=== PATIENT | male | born 1970 | race Hispanic/Latino ===

== ENCOUNTER 2019-04-19 15:01 | Emergency (ER) | payer OTHER ==
[2019-04-19 15:42] LABS: Absolute Lymphocytes (CBC) 1.8 K/uL (0.7-4.9); Hematocrit 47.3 % (39.6-49.0); Lymphocytes % 32.6 % (15.3-44.8); MPV 7.3 fL (7.6-11.3); RBC Red Blood Cell Count 4.87 M/uL (4.33-5.43)
[2019-04-19 15:47] LABS: Protime INR 0.98
[2019-04-19 16:00] LABS: ALT/SGPT 26 U/L (12-78); AST/SGOT 25 U/L (15-37); Albumin 3.8 g/dL (3.4-5.0); Alkaline Phosphatase 47 U/L (45-117); BUN Blood Urea Nitrogen 12 mg/dL (7-18); Bicarbonate 28 mmol/L (21-32); Bilirubin Direct 0.1 mg/dL (0-0.2); Bilirubin Total 0.6 mg/dL (0.2-1.0); Glucose Level 86 mg/dL (74-106); Lipase 164 U/L (73-393); Magnesium 2.1 mg/dL (1.8-2.4); Potassium 3.7 mmol/L (3.5-5.1); Protein, Total 6.9 g/dL (6.4-8.2); Sodium Level 143 mmol/L (136-145); Troponin I < 0.02 ng/mL (0.0-0.045)
[2019-04-19 16:10] LABS: Urine Blood NEGATIVE (NEG); Urine Glucose NEGATIVE (NEG); Urine Protein NEGATIVE (NEG); Urine pH 7.5 (5.0-7.0)
--- NOTE | 2019-04-19 17:11 | RAD REPORT ---
EXAM DESCRIPTION: CT - Abdomen Pelvis W Contrast - 04/19/2019 5:00 pm CLINICAL HISTORY: Abdominal pain hematochezia COMPARISON: none. TECHNIQUE: Computed axial tomography of the abdomen pelvis was obtained. 100 cc Isovue-300 was admin istered intravenously. Oral contrast was not requested which limits evaluation of bowel. All CT scans are performed using dose optimization technique as appropriate and may include automated exposure control or mA/KV adjustment according to patient size. FINDINGS: The liver, spleen, pancreas, adrenal and kidneys appear unremarkable. There is no evidence of diverticulitis. The wall of the rectosigmoid colon appears mildly thickened. No appendicitis. Trace amount of free fluid Minimal anterior subluxation L5 on S1. L5 spondylolysis IMPRESSION: Mild thickening of the wall of rectosigmoid colon may indicate a mild colitis
[2019-04-19] MEDS ORDERED: METRONIDAZOLE 500mg IVPB 500 MG/100 ML BAG IV ONE (17:42)
[2019-04-19] MEDS ORDERED: CIPROFLOXACIN 400mg IV 400 MG/200 ML BAG IV ONE (17:58)
[2019-04-19] MEDS ORDERED: NA CHLORIDE 0.9% 1,000 ML ONE (17:59)
[2019-04-19] MEDS ORDERED: ONDANSETRON 4 MG/2 ML VIAL ONE (18:21)
[2019-04-19] MEDS ORDERED: MORPHINE 2 MG/ML SYR ONE ×3 (18:21→23:30)
--- NOTE | 2019-04-19 18:29 | EDPHYS ---
Physician Documentation [facility] Name: Austen Hernandez Age: 49 yrs Sex: Male : 1970 Arrival Date: 04/19/2019 Time: 15:05 Bed 19 Private MD: ED Physician Ned Chin HPI: 04/19 15:09 This 49 yrs old Male presents to ER via Unassigned with complaints of Abdominal Pain, cp Bloody Stools. 15:10 The patient presents with abdominal pain in the upper abdomen. cp 15:10 Onset: The symptoms/episode began/occurred today, after lunch. The symptoms do not cp radiate. Associated signs and symptoms: Pertinent positives: blood in stools, diarrhea, Pertinent negatives: chest pain, constipation, fever, vomiting. The symptoms are described as crampy. Historical: - Allergies: 19:18 PENICILLINS; tw2 19:18 Cogentin; tw2 - Home Meds: 19:18 None [Active]; tw2 - PMHx: 19:18 None; tw2 - PSHx: 19:18 None; tw2 - Immunization history:: Adult Immunizations. - Coronavirus screen:: The patient has NOT traveled to [place] in the past 14 days. - Social history:: Smoking status: . - Ebola Screening: : Patient denies travel to an Ebola-affected area in the 21 days before illness onset. ROS: 15:15 Constitutional: Negative for body aches, chills, fever, poor PO intake. cp 15:15 Eyes: Negative for injury, pain, redness, and discharge. cp 15:15 ENT: Negative for drainage from ear(s), ear pain, sore throat, difficulty swallowing, difficulty handling secretions. 15:15 Cardiovascular: Negative for chest pain, palpitations. 15:15 Respiratory: Negative for cough, shortness of breath, wheezing. 15:15 Abdomen/GI: Positive for diarrhea, abdominal cramps, rectal bleeding, Negative for vomiting, constipation. 15:15 Back: Negative for pain at rest, pain with movement, radiated pain. 15:15 : Negative for urinary symptoms. 15:15 Neuro: Negative for altered mental status, dizziness, syncope, weakness. 15:15 All other systems are negative. Exam: 15:20 Constitutional: The patient appears in no acute distress, alert, awake, cp non-diaphoretic, non-toxic, well developed, well nourished. 15:20 Head/Face: Normocephalic, atraumatic. cp 15:20 Eyes: Periorbital structures: appear normal, Conjunctiva: normal, no exudate, no injection, Sclera: no appreciated abnormality, Lids and lashes: appear normal, bilaterally. 15:20 ENT: External ear(s): are unremarkable, Nose: is normal, Mouth: is normal, Posterior pharynx: is normal, airway is patent. 15:20 Chest/axilla: Inspection: normal, Palpation: is normal, no crepitus, no tenderness. 15:20 Cardiovascular: Rate: normal, Rhythm: regular, Heart sounds: murmur, not appreciated. 15:20 Respiratory: the patient does not display signs of respiratory distress, Respirations: normal, no use of accessory muscles, no splinting, no tachypnea, labored breathing, is not present, Breath sounds: are clear throughout, no decreased breath sounds. 15:20 Abdomen/GI: Inspection: abdomen appears normal, Bowel sounds: active, all quadrants, Palpation: soft, in all quadrants, mild abdominal tenderness, in the right upper quadrant and left upper quadrant, rebound tenderness, is not appreciated, voluntary guarding, is not appreciated, involuntary guarding, is not appreciated. 15:20 Back: pain, is absent, ROM is normal. 15:20 Skin: no rash present. 15:25 : Rectal exam: Guaiac testing: results were positive for occult blood, hemorrhoid(s), cp are not appreciated. 16:20 ECG was reviewed by the Attending Physician. cp Vital Signs: 15:05 BP 135 / 85; Pulse 73; Resp 17; Temp 97.8(TE); Pulse Ox 100% on R/A; Weight 70.76 kg tw2 (R); Height 5 ft. 6 in. (167.64 cm); Pain 5/10; 16:00 BP 113 / 93; Pulse 66; Resp 17; Pulse Ox 97% on R/A; tw2 17:20 BP 134 / 97; Pulse 61; Resp 17; Pulse Ox 97% on R/A; tw2 18:40 BP 142 / 75; Pulse 75; Resp 17; Pulse Ox 100% on R/A; tw2 20:18 BP 127 / 87; Pulse 70; Resp 17 S; Pulse Ox 100% on R/A; Pain 6/10; jd3 21:33 BP 123 / 86; Pulse 68; Resp 17 S; Pulse Ox 95% on R/A; jd3 23:07 BP 128 / 83; Pulse 58; Resp 17 S; Pulse Ox 96% on R/A; jd3 15:05 Body Mass Index 25.18 (70.76 kg, 167.64 cm) tw2 MDM: 15:09 Patient medically screened. cp 17:30 Data reviewed: vital signs, nurses notes, lab test result(s), EKG, radiologic studies, cp CT scan, I have discussed the patient's presentation/case with the attending Emergency Department Physician; and as a result, I will administer antibiotics Cipro and Metronidazole. 18:00 Counseling: I had a detailed discussion with the patient and/or guardian regarding: the cp historical points, exam findings, and any diagnostic results supporting the discharge/admit diagnosis, lab results, radiology results, the need to transfer to another facility, [facility] does not immediately have the required specialist. 04/19 15:08 Order name: Basic Metabolic Panel; Complete Time: 16:49 cp 04/19 16:49 Interpretation: Normal except: CL 110; GFR 77. cp 04/19 15:08 Order name: CBC with Diff; Complete Time: 15:51 cp 04/19 15:51 Interpretation: Normal except: MPV 7.3. cp 04/19 15:08 Order name: Creatinine for Radiology; Complete Time: 16:49 cp 04/19 15:08 Order name: Hepatic Function; Complete Time: 16:49 cp 04/19 15:08 Order name: Lipase; Complete Time: 16:49 cp 04/19 15:08 Order name: Occult Blood; Complete Time: 19:48 cp 04/19 15:08 Order name: Stool Culture cp 04/19 15:08 Order name: CDIFF cp 04/19 15:08 Order name: PT-INR; Complete Time: 15:51 cp 04/19 15:08 Order name: Ptt, Activated; Complete Time: 15:51 cp 04/19 15:08 Order name: Type And Screen; Complete Time: 16:49 cp 04/19 15:08 Order name: Magnesium; Complete Time: 16:49 cp 04/19 15:08 Order name: Troponin I; Complete Time: 16:49 cp 04/19 15:59 Order name: Urine Dipstick--Ancillary (enter results); Complete Time: 16:49 hb 04/19 15:08 Order name: IV Saline Lock; Complete Time: 15:35 cp 04/19 15:08 Order name: Labs collected and sent; Complete Time: 15:35 cp 04/19 15:08 Order name: EKG; Complete Time: 15:09 cp 04/19 15:08 Order name: EKG - Nurse/Tech; Complete Time: 16:14 cp 04/19 15:16 Order name: CT Abd/Pelvis - IV Contrast Only; Complete Time: 17:28 cp 04/19 18:20 Order name: Hematocrit cp 04/19 18:48 Order name: Hemoglobin eb 04/19 18:49 Order name: Hematocrit; Complete Time: 19:48 EDMS 04/19 19:49 Interpretation: Within normal limits: Reviewed. cp 04/19 19:25 Order name: Hemoglobin; Complete Time: 19:48 EDMS 04/19 19:49 Interpretation: Within normal limits: Reviewed. cp 04/19 21:15 Order name: ABO/RH no charge EDMS 04/19 15:09 Order name: Urine Dipstick-Ancillary (obtain specimen); Complete Time: 17:49 cp 04/19 17:30 Order name: NPO; Complete Time: 21:35 cp 04/19 17:31 Order name: Misc. Order: start antibiotics after obtaining stool sample; Complete Time: cp 17:48 04/19 18:20 Order name: Hemacult; Complete Time: 19:19 cp EC:20 Rate is 64 beats/min. Rhythm is regular. NH interval is normal. QRS interval is normal. cp QT interval is normal. Interpreted by me. Reviewed by me. Administered Medications: 15:40 Drug: NS 0.9% 1000 ml Route: IV; Rate: 1 bolus; Site: left antecubital; tw2 16:20 Follow up: IV Status: Completed infusion; IV Intake: 1000ml tw2 17:49 Drug: metroNIDAZOLE 500 mg Volume: 100 ml; Route: IVPB; Infused Over: 30 mins; Site: tw2 left antecubital; 18:22 Follow up: Response: No adverse reaction; IV Status: Completed infusion tw2 18:22 Drug: Zofran 4 mg Route: IVP; Site: left antecubital; tw2 18:22 Follow up: Response: No adverse reaction tw2 18:24 Drug: morphine 2 mg Route: IVP; Site: left antecubital; tw2 19:00 Follow up: Response: No adverse reaction; Pain is decreased; RASS: Alert and Calm (0) tw2 18:28 Drug: Cipro 400 mg Volume: 200 ml; Route: IVPB; Infused Over: 60 mins; Site: left tw2 antecubital; 19:25 Follow up: Response: No adverse reaction; IV Status: Completed infusion jd3 20:09 Drug: morphine 2 mg Route: IVP; Site: left antecubital; jd3 21:00 Follow up: Response: No adverse reaction; RASS: Alert and Calm (0) jd3 23:32 Drug: morphine 2 mg Route: IVP; Site: left antecubital; jd3 23:32 Follow up: Response: No adverse reaction; No adverse reaction, medicated prior to jd3 transfer. Disposition: 04/19/19 18:27 Transfer ordered to [facility]. Diagnosis are Infectious gastroenteritis and colitis, unspecified, Gastrointestinal hemorrhage, unspecified. - Reason for transfer: Higher level of care. - Accepting physician is DR Garrett. - Condition is Stable. - Problem is new. - Symptoms have improved. Addendum: 04/22/2019 07:16 Co-signature as Attending Physician, Ned Chin MD I agree with the assessment and k dr plan of care. Signatures: Dispatcher [employer] EDMS Ned Chin MD MD [facility] Oliver Nicholas PA PA cp Aby Carter RN RN tw2 José Luis Mejía RN RN jd3 Corrections: (The following items were deleted from the chart) 04/19 23:36 18:27 04/19/2019 18:27 Transfer ordered to [facility]. jd3 Diagnosis is Infectious gastroenteritis and colitis, unspecified; Gastrointestinal hemorrhage, unspecified. Reason for transfer: Higher level of care. Accepting physician is DR Garrett. Condition is Stable. Problem is new. Symptoms have improved. cp
--- NOTE | 2019-04-19 18:29 | ER ---
Nurse's Notes [facility] Name: Austen Hernandez Age: 49 yrs Sex: Male : 1970 Arrival Date: 04/19/2019 Time: 15:05 Bed 19 Private MD: Diagnosis: Infectious gastroenteritis and colitis, unspecified;Gastrointestinal hemorrhage, unspecified Presentation: 04/19 15:05 Presenting complaint: EMS states: pt is in inmate in [facility] c/o abdominal pain, started at tw2 noon, describes it as a cramping pain 07/06, had a BM noted bright red blood in toilet, 2nd BM happened in [facility] with nurse and she did not bright red blood in stool, and no hemorrhoids noted on digital examination by TDC, vs stable. Transition of care: patient was not received from another setting of care. Onset of symptoms was April 19, 2019. Risk Assessment: Do you want to hurt yourself or someone else? Patient reports no desire to harm self or others. Initial Sepsis Screen: Does the patient meet any 2 criteria? No. Patient's initial sepsis screen is negative. Does the patient have a suspected source of infection? No. Patient's initial sepsis screen is negative. Care prior to arrival: None. 15:05 Acuity: NUHA 3 tw2 15:05 [facility] Triage Assessment: 15:05 General: Appears in no apparent distress. Behavior is calm, cooperative, appropriate tw2 for age. Pain: Denies pain. GI: Reports bloody stool. Historical: - Allergies: 19:18 PENICILLINS; tw2 19:18 Cogentin; tw2 - Home Meds: 19:18 None [Active]; tw2 - PMHx: 19:18 None; tw2 - PSHx: 19:18 None; tw2 - Immunization history:: Adult Immunizations. - Coronavirus screen:: The patient has NOT traveled to [place] in the past 14 days. - Social history:: Smoking status: . - Ebola Screening: : Patient denies travel to an Ebola-affected area in the 21 days before illness onset. Screenin:02 Abuse screen: Denies threats or abuse. Nutritional screening: No deficits noted. tw2 Tuberculosis screening: No symptoms or risk factors identified. Fall Risk None identified. Assessment: 15:10 General: Appears in no apparent distress. Behavior is calm, cooperative, appropriate tw2 for age. Pain: Complains of pain in abdomen. Neuro: Level of Consciousness is awake, alert, obeys commands, Oriented to person, place, time, situation. Cardiovascular: Heart tones S1 S2 Patient's skin is warm and dry. Respiratory: Airway is patent Respiratory effort is even, unlabored, Respiratory pattern is regular, symmetrical, Breath sounds are clear bilaterally. GI: Abdomen is flat, Bowel sounds present X 4 quads. Abd is soft X 4 quads Reports bloody stool. : No signs and/or symptoms were reported regarding the genitourinary system. EENT: No signs and/or symptoms were reported regarding the EENT system. Derm: No signs and/or symptoms reported regarding the dermatologic system. Musculoskeletal: Circulation, motion, and sensation intact. 17:37 Reassessment: Patient appears in no apparent distress at this time. No changes from tw2 previously documented assessment. Patient and/or family updated on plan of care and expected duration. Pain level reassessed. Patient is alert, oriented x 3, equal unlabored respirations, skin warm/dry/pink. 18:30 Reassessment: Patient appears in no apparent distress at this time. No changes from tw2 previously documented assessment. Patient and/or family updated on plan of care and expected duration. Pain level reassessed. Patient is alert, oriented x 3, equal unlabored respirations, skin warm/dry/pink. 19:50 General: Appears in no apparent distress. comfortable, well groomed, Behavior is calm, jd3 cooperative, appropriate for age. Pain: Complains of pain in right upper quadrant and left upper quadrant Pain does not radiate. Pain currently is 6 out of 10 on a pain scale. Quality of pain is described as crampy, sharp, tender. Neuro: Level of Consciousness is awake, alert, obeys commands, Oriented to person, place, time, situation. Cardiovascular: Capillary refill < 3 seconds Patient's skin is warm and dry. Chest pain is denied. Respiratory: Airway is patent Respiratory effort is even, unlabored, Respiratory pattern is regular, symmetrical, Denies shortness of breath. GI: Abdomen is flat, non-distended, Bowel sounds present X 4 quads. Abd is soft X 4 quads Abdomen is tender to palpation in right upper quadrant and left upper quadrant. : No signs and/or symptoms were reported regarding the genitourinary system. EENT: No signs and/or symptoms were reported regarding the EENT system. Derm: Skin is intact, Skin is dry, Skin is normal, Skin temperature is warm. Musculoskeletal: Circulation, motion, and sensation intact. Range of motion: intact in all extremities. 20:30 Reassessment: Patient appears in no apparent distress at this time. No changes from jd3 previously documented assessment. Patient and/or family updated on plan of care and expected duration. Pain level reassessed. Patient is alert, oriented x 3, equal unlabored respirations, skin warm/dry/pink. 21:33 Reassessment: Patient appears in no apparent distress at this time. No changes from jd3 previously documented assessment. Patient and/or family updated on plan of care and expected duration. Pain level reassessed. Patient is alert, oriented x 3, equal unlabored respirations, skin warm/dry/pink. 21:52 Reassessment: Patient appears in no apparent distress at this time. Patient and/or jd3 family updated on plan of care and expected duration. Pain level reassessed. Patient is alert, oriented x 3, equal unlabored respirations, skin warm/dry/pink. report given to Dany PATRICK at [facility]. 23:06 Reassessment: Patient appears in no apparent distress at this time. Patient and/or jd3 family updated on plan of care and expected duration. Pain level reassessed. Patient is alert, oriented x 3, equal unlabored respirations, skin warm/dry/pink. awaiting transport. 23:33 Reassessment: Patient appears in no apparent distress at this time. Patient and/or jd3 family updated on plan of care and expected duration. Pain level reassessed. Patient is alert, oriented x 3, equal unlabored respirations, skin warm/dry/pink. report given to [facility] ambulance service for pt transport. Vital Signs: 15:05 BP 135 / 85; Pulse 73; Resp 17; Temp 97.8(TE); Pulse Ox 100% on R/A; Weight 70.76 kg tw2 (R); Height 5 ft. 6 in. (167.64 cm); Pain 5/10; 16:00 BP 113 / 93; Pulse 66; Resp 17; Pulse Ox 97% on R/A; tw2 17:20 BP 134 / 97; Pulse 61; Resp 17; Pulse Ox 97% on R/A; tw2 18:40 BP 142 / 75; Pulse 75; Resp 17; Pulse Ox 100% on R/A; tw2 20:18 BP 127 / 87; Pulse 70; Resp 17 S; Pulse Ox 100% on R/A; Pain 6/10; jd3 21:33 BP 123 / 86; Pulse 68; Resp 17 S; Pulse Ox 95% on R/A; jd3 23:07 BP 128 / 83; Pulse 58; Resp 17 S; Pulse Ox 96% on R/A; jd3 15:05 Body Mass Index 25.18 (70.76 kg, 167.64 cm) tw2 ED Course: 15:02 Bed in low position. Call light in reach. 2 TDC guards at bedside at this time, pt tw2 remains in Y shaped shackle at this time. front desk monitor on. Pulse ox on. NIBP on. 15:05 Patient arrived in ED. tw2 15:05 Oliver Nicholas PA is PHCP. cp 15:05 Ned Chin MD is Attending Physician. cp 15:05 Arm band placed on. tw2 15:10 Triage completed. tw2 15:29 Aby Carter, CELINA is Primary Nurse. tw2 15:36 Initial lab(s) drawn, by me, sent to lab. T\T\S collected, blood band applied to patient. em1 16:14 EKG done, by ED staff, reviewed by Oliver LOZADA. em1 17:01 CT Abd/Pelvis - IV Contrast Only In Process Unspecified. EDMS 17:40 initiated a transfer with Gabbie from [facility]. eb 17:51 per Gabbie at [facility] is at capacity and are declining the patient/ for us to eb transfer the patient and call them with the information of the facility and they will arrange transport. 18:03 initiated a transfer with Renuka from the [facility]/ per Renuka the eb DENIER CONTROL OPERATOR wants us to know they are at saturation and it will be a while for a bed to come available. 18:[address] Garrett the hospitalist neuropsychology medical consultant for [facility] with Oliver LOZADA for eb patient transfer consultation. 18:30 per Renuka from the [facility] Transfer Center we are to call back with the repeat H\T\H eb is complete so they can determine the type of bed the patient will need. 19:00 Report given to CELINA Cheek - pt is NPO, 2 mg morphine available if need for pt prior tw2 to transfer. 20:36 called [facility] spoke with Osorio Vincent to notify him that the pt is being transferred mw2 to [facility] 10 tower bed 1010. Then spoke to Familia from EMS they call back with an ETA. 22:20 Familia called back for an EMS ETA. [facility] EMS will be her in 1hr and 30 min. mw2 23:34 No provider procedures requiring assistance completed. Patient transferred, IV remains jd3 in place. Administered Medications: 15:40 Drug: NS 0.9% 1000 ml Route: IV; Rate: 1 bolus; Site: left antecubital; tw2 16:20 Follow up: IV Status: Completed infusion; IV Intake: 1000ml tw2 17:49 Drug: metroNIDAZOLE 500 mg Volume: 100 ml; Route: IVPB; Infused Over: 30 mins; Site: tw2 left antecubital; 18:22 Follow up: Response: No adverse reaction; IV Status: Completed infusion tw2 18:22 Drug: Zofran 4 mg Route: IVP; Site: left antecubital; tw2 18:22 Follow up: Response: No adverse reaction tw2 18:24 Drug: morphine 2 mg Route: IVP; Site: left antecubital; tw2 19:00 Follow up: Response: No adverse reaction; Pain is decreased; RASS: Alert and Calm (0) tw2 18:28 Drug: Cipro 400 mg Volume: 200 ml; Route: IVPB; Infused Over: 60 mins; Site: left tw2 antecubital; 19:25 Follow up: Response: No adverse reaction; IV Status: Completed infusion jd3 20:09 Drug: morphine 2 mg Route: IVP; Site: left antecubital; jd3 21:00 Follow up: Response: No adverse reaction; RASS: Alert and Calm (0) jd3 23:32 Drug: morphine 2 mg Route: IVP; Site: left antecubital; jd3 23:32 Follow up: Response: No adverse reaction; No adverse reaction, medicated prior to jd3 transfer. Intake: 16:20 IV: 1000ml; Total: 1000ml. tw2 Outcome: 18:27 ER care complete, transfer ordered by MD. gilmore 23:35 Transferred by ground EMS to [facility], Transfer form completed. jd3 X-rays sent w/ patient. 23:35 Condition: stable 23:35 Instructed on the need for transfer, Demonstrated understanding of instructions. 23:36 Patient left the ED. jd3 Signatures: Dispatcher [employer] [place] Woods em1 Oliver Nicholas PA PA cp Wise, Tara, RN RN tw2 José Luis Mejía RN RN jd3 Fifi Smith mw2 Molly Kohli Corrections: (The following items were deleted from the chart) 18:23 18:17 connected the hospitalist neuropsychology medical consultant for [facility] with Oliver LOZADA for patient eb transfer consultation. eb
[2019-04-20 02:01] VITALS: TEMP 97.8
[2019-04-20 02:10] VITALS: BP 128/83; O2SAT 96
[2019-04-20 12:56] LABS: C.diff Antigen/Toxin Ag neg : Tox neg (NEG : NEG)
--- NOTE | 2019-04-20 16:29 | EKG ---
Test Date: 2019-04-19 Test Time: 16:04:20 Logging Operations Inspector: SUSANNAH MEASUREMENT RESULTS: Intervals: Rate: 64 NH: 146 QRSD: 74 QT: 392 QTc: 404 [place]: P: 76 NH: 146 QRS: 71 T: 73 INTERPRETIVE STATEMENTS: Normal sinus rhythm Nonspecific ST abnormality Abnormal ECG No previous ECG available for comparison Electronically Signed On 04-20-19 16:27:29 DIRECTOR OF ESTATE by Julius Vallejo
== END 2019-04-19 23:36 | disposition short-term general hospital (02) ==
LOC: ER 15:01
DX: A09 Infectious gastroenteritis and colitis, unspecified (principal); K92.2 Gastrointestinal hemorrhage, unspecified; Z88.0 Allergy status to penicillin
CPT/HCPCS: 96365; 96367; 96361; 93005; 87045; 85025; 80048; 36415; 86900; 83735; 86850; 82274; 85610; 86901; 80076; 87046; 85730; 85018; 85014; 81003; 87324; 84484; 83690; 87449; 74177; 96375; 99285; Q9967; J2405; J0744; J2270; J7030